=== PATIENT | female | born 1955 | race African-American/Black ===

== ENCOUNTER 2018-06-12 07:17 | Emergency (ER) | payer SELFPAY ==
[2018-06-12] MEDS ORDERED: methylPREDNISolone SOD SUCCI 125 MG/2 ML VIAL IV STA (07:44)
[2018-06-12] MEDS ORDERED: ALBUTEROL NEBULIZED 2.5 MG/3 ML INHALATION STA (07:44)
[2018-06-12] MEDS ORDERED: IPRATROPIUM 0.5 MG/2.5 ML NEBU INHALATION STA (07:44)
--- NOTE | 2018-06-12 08:06 | ED ---
General Adult HPI - General Chief complaint: Shortness of Breath Stated complaint: SOB,cold,COPD Time Seen by Provider: 06/12/18 07:17 Source: patient, RN notes reviewed Mode of arrival: wheelchair Limitations: no limitations - History of Present Illness Initial comments: this is a 63-year-old female presents emergency department with past medical history significant for COPD. Patient states over the last few days she's been having more more difficult to breathing. Patient states she is coughing up some sputum and is yellow in nature. Patient states she's had no fever chills. Patient states a couple weeks ago she was on antibiotics for about a week and steroids. Patient states she has not taken the last week and symptoms seemed to be getting worse. Patient states they did seem to be getting better for a period of time but now the symptoms are back. Patient denies any chest pain or palpitations. Patient denies any abdominal pain patient denies nausea vomiting diarrhea. Patient denies headache patient denies numbness weakness. Patient denies lightheadedness dizziness or near syncopal episode. Patient denies any calf tenderness or leg swelling. - Related Data Home Medications Medication Instructions Recorded Confirmed Losartan/Hydrochlorothiazide 1 tab PO DAILY 06/12/18 06/12/18 [Losartan-Hctz 100-25 mg Tab] Pantoprazole Sodium [Protonix] 40 mg PO DAILY PRN 06/12/18 06/12/18 Verapamil Sr [Isoptin Sr] 240 mg PO DAILY 06/12/18 06/12/18 Previous Rx's Medication Instructions Recorded Azithromycin [Zithromax Tri-Jake] 500 mg PO DAILY #3 tab 06/12/18 predniSONE 40 mg PO DAILY #8 tab 06/12/18 Allergies Allergy/AdvReac Type Severity Reaction Status Date / Time latex Allergy Unknown Verified 06/12/18 09:47 Review of Systems ROS Statement: Those systems with pertinent positive or pertinent negative responses have been documented in the HPI. ROS Other: All systems not noted in ROS Statement are negative. Past Medical History Past Medical History: COPD, Hypertension History of Any Multi-Drug Resistant Organisms: None Reported Past Surgical History: Cholecystectomy, Hernia Repair Additional Past Surgical History / Comment(s): prolapsed bowel surgery Past Psychological History: No Psychological Hx Reported Smoking Status: Former smoker Past Alcohol Use History: None Reported Past Drug Use History: None Reported General Exam - General Exam Comments Initial Comments: GENERAL: Patient is well-developed and well-nourished. Patient is nontoxic and well- hydrated and is in mild distress. ENT: Neck is soft and supple. No significant lymphadenopathy is noted. Oropharynx is clear. Moist mucous membranes. Neck has full range of motion without elicit ing any pain. EYES: The sclera were anicteric and conjunctiva were pink and moist. Extraocular mo vements were intact and pupils were equal round and reactive to light. Eyelids were unremarkable. PULMONARY: Expiratory wheezing CARDIOVASCULAR: There is a regular rate and rhythm without any murmurs gallops or rubs. ABDOMEN: Soft and nontender with normal bowel sounds. No palpable organomegaly was noted. There is no palpable pulsatile mass. SKIN: Skin is clear with no lesions or rashes and otherwise unremarkable. NEUROLOGIC: Patient is alert and oriented x3. Cranial nerves II through XII are grossly intact. Motor and sensory are also intact. Normal speech, volume and content. Symmetrical smile. MUSCULOSKELETAL: Normal extremities with adequate strength and full range of motion. No lower extremity swelling or edema. No calf tenderness. LYMPHATICS: No significant lymphadenopathy is noted PSYCHIATRIC: Normal psychiatric evaluation. Limitations: no limitations Course Vital Signs 06/12/18 06/12/18 06/12/18 07:19 08:12 08:31 Temperature 99.1 F Pulse Rate 84 72 80 Respiratory 22 Rate Blood Pressure 167/108 O2 Sat by Pulse 99 Oximetry Medical Decision Making - Medical Decision Making This is a normal sinus rhythm at 77 bpm KS interval 160 QRS is 70 QT interval 42 QTC is 454. Patient's EKG shows no ST segment elevation or depression or T wave abnormalities are noted. Chest x-ray shows no acute abnormality. Patient received steroids and a breathing treatment emergency department I went back in and reevaluated the patient she had no wheezing at this time and did feel considerably better. Her patient received Rocephin emergency department I will go home on Zithromax and steroids. - Lab Data Result diagrams: 06/12/18 08:08 06/12/18 08:08 Lab Results 06/12/18 06/12/18 06/12/18 Range/Units 08:08 08:08 08:08 WBC 10.0 (3.8-10.6) k/uL RBC 4.69 (3.80-5.40) m/uL Hgb 14.2 (11.4-16.0) gm/dL Hct 42.1 (34.0-46.0) % MCV 89.8 (80.0-100.0) fL MCH 30.4 (25.0-35.0) pg MCHC 33.8 (31.0-37.0) g/dL RDW 13.0 (11.5-15.5) % Plt Count 254 (150-450) k/uL Neutrophils % 67 % Lymphocytes % 23 % Monocytes % 4 % Eosinophils % 2 % Basophils % 1 % Neutrophils # 6.7 (1.3-7.7) k/uL Lymphocytes # 2.3 (1.0-4.8) k/uL Monocytes # 0.4 (0-1.0) k/uL Eosinophils # 0.2 (0-0.7) k/uL Basophils # 0.1 (0-0.2) k/uL PT 9.7 (9.0-12.0) sec INR 0.9 (<1.2) APTT 22.0 (22.0-30.0) sec D-Dimer 0.47 (<0.60) mg/L FEU Sodium 142 (137-145) mmol/L Potassium 3.8 (3.5-5.1) mmol/L Chloride 103 (98-107) mmol/L Carbon Dioxide 32 H (22-30) mmol/L Anion Gap 7 mmol/L BUN 25 H (7-17) mg/dL Creatinine 1.07 H (0.52-1.04) mg/dL Est GFR (CKD-EPI)AfAm 65 (>60 ml/min/1.73 sqM) Est GFR (CKD-EPI)NonAf 57 (>60 ml/min/1.73 sqM) Glucose 98 (74-99) mg/dL Calcium 10.1 (8.4-10.2) mg/dL Magnesium 1.6 (1.6-2.3) mg/dL Total Bilirubin 0.4 (0.2-1.3) mg/dL AST 25 (14-36) U/L ALT 32 (9-52) U/L Alkaline Phosphatase 87 (38-126) U/L Troponin I (0.000-0.034) ng/mL NT-Pro-B Natriuret Pep pg/mL Total Protein 7.1 (6.3-8.2) g/dL Albumin 4.2 (3.5-5.0) g/dL 06/12/18 06/12/18 Range/Units 08:08 08:08 WBC (3.8-10.6) k/uL RBC (3.80-5.40) m/uL Hgb (11.4-16.0) gm/dL Hct (34.0-46.0) % MCV (80.0-100.0) fL MCH (25.0-35.0) pg MCHC (31.0-37.0) g/dL RDW (11.5-15.5) % Plt Count (150-450) k/uL Neutrophils % % Lymphocytes % % Monocytes % % Eosinophils % % Basophils % % Neutrophils # (1.3-7.7) k/uL Lymphocytes # (1.0-4.8) k/uL Monocytes # (0-1.0) k/uL Eosinophils # (0-0.7) k/uL Basophils # (0-0.2) k/uL PT (9.0-12.0) sec INR (<1.2) APTT (22.0-30.0) sec D-Dimer (<0.60) mg/L FEU Sodium (137-145) mmol/L Potassium (3.5-5.1) mmol/L Chloride (98-107) mmol/L Carbon Dioxide (22-30) mmol/L Anion Gap mmol/L BUN (7-17) mg/dL Creatinine (0.52-1.04) mg/dL Est GFR (CKD-EPI)AfAm (>60 ml/min/1.73 sqM) Est GFR (CKD-EPI)NonAf (>60 ml/min/1.73 sqM) Glucose (74-99) mg/dL Calcium (8.4-10.2) mg/dL Magnesium (1.6-2.3) mg/dL Total Bilirubin (0.2-1.3) mg/dL AST (14-36) U/L ALT (9-52) U/L Alkaline Phosphatase (38-126) U/L Troponin I <0.012 (0.000-0.034) ng/mL NT-Pro-B Natriuret Pep 70 pg/mL Total Protein (6.3-8.2) g/dL Albumin (3.5-5.0) g/dL Disposition Clinical Impression: Bronchitis, acute Disposition: HOME SELF-CARE Instructions (If sedation given, give patient instructions): Acute Bronchitis (ED), Bronchospasm (ED) Prescriptions: predniSONE 40 mg PO DAILY #8 tab Azithromycin [Zithromax Tri-Jake] 500 mg PO DAILY #3 tab Is patient prescribed a controlled substance at d/c from ED?: No Referrals: Olinda Olsen MD [Primary Care Provider] - 1-2 days
[2018-06-12 08:32] LABS: Basophils # (A) 0.1 k/uL (0-0.2); Basophils % (A) 1 %; Eosinophils # (A) 0.2 k/uL (0-0.7); Eosinophils % (A) 2 %; HCT 42.1 % (34.0-46.0); HGB 14.2 gm/dL (11.4-16.0); Lymphocytes # (A) 2.3 k/uL (1.0-4.8); Lymphocytes % (A) 23 %; MCH 30.4 pg (25.0-35.0); MCHC 33.8 g/dL (31.0-37.0); MCV 89.8 fL (80.0-100.0); Mean Platelet Volume 7.2; Monocytes # (A) 0.4 k/uL (0-1.0); Monocytes % (A) 4 %; Neutrophils # (A) 6.7 k/uL (1.3-7.7); Neutrophils % (A) 67 %; Platelet Count 254 k/uL (150-450); RBC 4.69 m/uL (3.80-5.40)
--- NOTE | 2018-06-12 08:43 | XR ---
EXAMINATION TYPE: XR chest 2V DATE OF EXAM: 06/12/2018 COMPARISON: NONE HISTORY: Difficulty breathing TECHNIQUE: Frontal and lateral views of the chest are obtained. FINDINGS: There is no focal air space opacity, pleural effusion, or pneumothorax seen. Mild flatteni ng of the diaphragms on the lateral view suggests underlying COPD. The cardiac silhouette size is upp er limits of normal. The osseous structures are intact. IMPRESSION: No acute cardiopulmonary process. Mild flattening of the diaphragms on lateral view may relate to underlying COPD. Correlation with pulmonary function tests could be performed.
[2018-06-12 08:45] LABS: Albumin 4.2 g/dL (3.5-5.0); Calcium 10.1 mg/dL (8.4-10.2); Magnesium 1.6 mg/dL (1.6-2.3); Potassium 3.8 mmol/L (3.5-5.1); Total Bilirubin 0.4 mg/dL (0.2-1.3); Total Protein 7.1 g/dL (6.3-8.2)
[2018-06-12 08:49] LABS: D-Dimer 0.47 mg/L FEU (<0.60); INR 0.9 (<1.2); Prothrombin Time 9.7 sec (9.0-12.0)
[2018-06-12] MEDS ORDERED: cefTRIAXone IN SWFI 1,000 MG/10 ML SYRINGE IVP STA (09:52)
[2018-06-12 11:09] VITALS: BP 126/77; PULSE 84; RESP 17; TEMP 98.7
== END 2018-06-12 11:11 | disposition home or self-care (01) ==
LOC: EC 07:17
DX: J20.9 Acute bronchitis, unspecified (principal); I10 Essential (primary) hypertension; Z87.891 Personal history of nicotine dependence; Z90.49 Acquired absence of other specified parts of digestive tract; Z98.890 Other specified postprocedural states; Z79.899 Other long term (current) drug therapy; Z91.040 Latex allergy status
CPT/HCPCS: 36415; 94640; 93005; 85379; 83880; 80053; 83735; 84484; 85025; 85610; 85730; 87040; 71046; 99285; 96374; 96375; J2930; J0696

== ENCOUNTER 2018-09-05 20:28 | Emergency (ER) | payer MEDICAID ==
[2018-09-05 20:43] VITALS: RESP 18; TEMP 98.7
--- NOTE | 2018-09-05 21:11 | ED ---
General Adult HPI - General Chief complaint: Syncope Stated complaint: Syncope Time Seen by Provider: 09/05/18 20:35 Source: patient, EMS Mode of arrival: EMS - History of Present Illness Initial comments: Dictation was produced using [employer] dictation software. please excuse any grammatical, word or spelling errors. Chief Complaint: 63-year-old female with past medical history of COPD and hypertension presents with syncopal episode. History of Present Illness: 63-year-old female brought to the emergency department for syncopal episode. Patient has past medical history of COPD and hypertension. [place] She states it was really hot outside. Patient began feeling lightheaded and told her family member did take her to equal in station. She got to the police station when she had a witnessed syncopal event. Patient states she fell and hit her head. Patient denies any history of syncope. Denies any palpitations prior to the episode. No history of CHF. Patient next remembers waking up on the ground. Patient otherwise has no complete at this time. The ROS documented in this emergency department record has been reviewed and confirmed by me. Those systems with pertinent positive or negative responses have been documented in the HPI. All other systems are other negative and/or noncontributory. PHYSICAL EXAM: General Impression: Alert and oriented x3, not in acute distress HEENT: Small hematoma over the vertex of the head, extra-ocular movements intact, pupils equal and reactive to light bilaterally, mucous membranes moist. Cardiovascular: Heart regular rate and rhythm, S1&S2 audible, no murmurs, rubs or gallops Chest: Lungs clear to auscultation bilaterally, no rhonchi, no wheeze, no rales Abdomen: Bowel sounds present, abdomen soft, non-tender, non-distended, no organomegaly Musculoskeletal: Pulses present and equal in all extremities, no peripheral edema Motor: no focal deficits noted Neurological: CN II-XII grossly intact, no focal motor or sensory deficits noted Skin: Intact with no visualized rashes Psych: Normal affect and mood ED course: 63-year-old female presents after syncopal event. She fell and hit her head. Denies any symptoms of headache or neck pain at this time. On arrival are within acceptable limits. EKGs benign. Indications were reviewed. Patient is unremarkable male. Laboratory evaluation obtained. CBC unremarkable. Coag panel unremarkable. Potassium level is 2.8. No Acidosis. Slight elevation of renal markers. Rest of metabolic panel is unremarkable. EKG is benign. Patient given IV potassium and by mouth potassium. Patient dictation reviewed she is told to hold her blood pressure medications given that her hypokalemia is likely secondary to potassium wasting. She does have good follow-up with her primary care physician. Patient given potassium supplementation to take her the course of the next 3 days. Episode of syncope is likely secondary to vasovagal syncope versus dehydration. Patient was also given intravenous fluids. Patient monitored with no significant findings on the quality assurance monitor body. Very low suspicion of arrhythmia this time. Patient amenable for discharge she is agreeable and understands return precautions. EKG interpretation: Ventricular rate 64, normal sinus rhythm,. Interval 186, QS 86, QTC 425. No KS prolongation, no QTC prolongation, no ST or T-wave changes noted. . Overall, this EKG is unremarkable - Related Data Home Medications Medication Instructions Recorded Confirmed Losartan/Hydrochlorothiazide 1 tab PO DAILY 06/12/18 09/05/18 [Losartan-Hctz 100-25 mg Tab] Verapamil Sr [Isoptin Sr] 240 mg PO DAILY 06/12/18 09/05/18 Montelukast [Singulair] 10 mg PO DAILY 09/05/18 09/05/18 Previous Rx's Medication Instructions Recorded Potassium Chloride [K-Tab ER] 20 meq PO BID #6 tablet.er 09/05/18 Allergies Allergy/AdvReac Type Severity Reaction Status Date / Time latex Allergy Unknown Verified 09/05/18 21:42 Review of Systems ROS Statement: Those systems with pertinent positive or pertinent negative responses have been documented in the HPI. ROS Other: All systems not noted in ROS Statement are negative. Past Medical History Past Medical History: COPD, Hypertension History of Any Multi-Drug Resistant Organisms: None Reported Past Surgical History: Cholecystectomy, Hernia Repair Additional Past Surgical History / Comment(s): prolapsed bowel surgery Past Psychological History: No Psychological Hx Reported Smoking Status: Light tobacco smoker Past Alcohol Use History: None Reported Past Drug Use History: None Reported Course Vital Signs 09/05/18 20:33 Temperature 98.7 F Pulse Rate 70 Respiratory 18 Rate Blood Pressure 113/72 O2 Sat by Pulse 97 Oximetry Medical Decision Making - Lab Data Result diagrams: 09/05/18 21:17 09/05/18 21:17 Lab Results 09/05/18 09/05/18 09/05/18 Range/Units 21:16 21:17 21:17 WBC 9.6 (3.8-10.6) k/uL RBC 4.50 (3.80-5.40) m/uL Hgb 13.3 (11.4-16.0) gm/dL Hct 40.4 (34.0-46.0) % MCV 89.9 (80.0-100.0) fL MCH 29.7 (25.0-35.0) pg MCHC 33.0 (31.0-37.0) g/dL RDW 13.3 (11.5-15.5) % Plt Count 259 (150-450) k/uL Neutrophils % 58 % Lymphocytes % 33 % Monocytes % 4 % Eosinophils % 2 % Basophils % 0 % Neutrophils # 5.6 (1.3-7.7) k/uL Lymphocytes # 3.2 (1.0-4.8) k/uL Monocytes # 0.4 (0-1.0) k/uL Eosinophils # 0.2 (0-0.7) k/uL Basophils # 0.0 (0-0.2) k/uL PT (9.0-12.0) sec INR (<1.2) Sodium 143 (137-145) mmol/L Potassium 2.8 L (3.5-5.1) mmol/L Chloride 108 H (98-107) mmol/L Carbon Dioxide 25 (22-30) mmol/L Anion Gap 10 mmol/L BUN 26 H (7-17) mg/dL Creatinine 1.54 H (0.52-1.04) mg/dL Est GFR (CKD-EPI)AfAm 42 (>60 ml/min/1.73 sqM) Est GFR (CKD-EPI)NonAf 36 (>60 ml/min/1.73 sqM) Glucose 114 H (74-99) mg/dL POC Glucose (mg/dL) 113 H (75-99) mg/dL POC Glu Lighting Adviser ID Luiz Saenz Calcium 9.5 (8.4-10.2) mg/dL Magnesium 1.9 (1.6-2.3) mg/dL 09/05/18 Range/Units 21:17 WBC (3.8-10.6) k/uL RBC (3.80-5.40) m/uL Hgb (11.4-16.0) gm/dL Hct (34.0-46.0) % MCV (80.0-100.0) fL MCH (25.0-35.0) pg MCHC (31.0-37.0) g/dL RDW (11.5-15.5) % Plt Count (150-450) k/uL Neutrophils % % Lymphocytes % % Monocytes % % Eosinophils % % Basophils % % Neutrophils # (1.3-7.7) k/uL Lymphocytes # (1.0-4.8) k/uL Monocytes # (0-1.0) k/uL Eosinophils # (0-0.7) k/uL Basophils # (0-0.2) k/uL PT 10.7 (9.0-12.0) sec INR 1.0 (<1.2) Sodium (137-145) mmol/L Potassium (3.5-5.1) mmol/L Chloride (98-107) mmol/L Carbon Dioxide (22-30) mmol/L Anion Gap mmol/L BUN (7-17) mg/dL Creatinine (0.52-1.04) mg/dL Est GFR (CKD-EPI)AfAm (>60 ml/min/1.73 sqM) Est GFR (CKD-EPI)NonAf (>60 ml/min/1.73 sqM) Glucose (74-99) mg/dL POC Glucose (mg/dL) (75-99) mg/dL POC Glu Lighting Adviser ID Calcium (8.4-10.2) mg/dL Magnesium (1.6-2.3) mg/dL Disposition Clinical Impression: Vasovagal syncope Disposition: HOME SELF-CARE Condition: Good Instructions (If sedation given, give patient instructions): Syncope (DC), Hypokalemia (ED) Prescriptions: Potassium Chloride [K-Tab ER] 20 meq PO BID #6 tablet.er Is patient prescribed a controlled substance at d/c from ED?: No Referrals: Olinda Olsen MD [Primary Care Provider] - 1-2 days Time of Disposition: 22:20
[2018-09-05 21:23] LABS: Glucose,Whole Blood 113 mg/dL (75-99)
[2018-09-05 21:27] LABS: Basophils % (A) 0 %; Eosinophils # (A) 0.2 k/uL (0-0.7); Eosinophils % (A) 2 %; HCT 40.4 % (34.0-46.0); HGB 13.3 gm/dL (11.4-16.0); Lymphocytes # (A) 3.2 k/uL (1.0-4.8); Lymphocytes % (A) 33 %; MCH 29.7 pg (25.0-35.0); MCV 89.9 fL (80.0-100.0); Mean Platelet Volume 6.7; Monocytes # (A) 0.4 k/uL (0-1.0); Monocytes % (A) 4 %; Neutrophils # (A) 5.6 k/uL (1.3-7.7); Neutrophils % (A) 58 %; Platelet Count 259 k/uL (150-450); RDW 13.3 % (11.5-15.5); WBC 9.6 k/uL (3.8-10.6)
[2018-09-05 21:32] LABS: Prothrombin Time 10.7 sec (9.0-12.0)
--- NOTE | 2018-09-05 21:36 | CT ---
EXAMINATION TYPE: CT brain nikita torres con DATE OF EXAM: 09/05/2018 COMPARISON: CT brain 05/06/2017 HISTORY: syncopal episode Headache. Neck pain. CT DLP: 1274.5 mGycm Automated exposure control for dose reduction was used. TECHNIQUE: CT scan of the head and cervical spine are performed without contrast. FINDINGS: Ventricles and sulci appear normal. There is no mass effect nor midline shift. There is n o sign of intracranial hemorrhage. The calvarium appears intact. There is some straightening of the cervical spine. There is degenerative disc space narrowing at C5-6 with moderate spur formation of the endplates. There is hypertrophic facet arthropathy in the mid ce rvical spine. Skull base is intact. There is no evidence of a fracture. IMPRESSION: Negative CT scan of the brain. No change. Spondylotic changes in the lower cervical spine. No fracture.
--- NOTE | 2018-09-05 21:38 | XR ---
EXAMINATION TYPE: XR chest 1V portable DATE OF EXAM: 09/05/2018 COMPARISON: 06/12/2018 HISTORY: Syncope TECHNIQUE: Single frontal view of the chest is obtained. FINDINGS: Heart and mediastinum are normal. Lungs are clear. Diaphragm is normal. Bony thorax appear s normal. IMPRESSION: Normal chest. No change.
[2018-09-05 21:45] LABS: Calcium 9.5 mg/dL (8.4-10.2); Magnesium 1.9 mg/dL (1.6-2.3); Potassium 2.8 mmol/L (3.5-5.1)
[2018-09-05] MEDS ORDERED: POTASSIUM CHLORIDE ER 20 MEQ TAB.ER PO STA (22:06)
[2018-09-05] MEDS ORDERED: POTASSIUM CHLORIDE 20 MEQ in WATER FOR INJECTION 1 100ML.BAG IVPB ONE (22:30)
[2018-09-06 04:29] VITALS: BP 122/69; PULSE 69
== END 2018-09-06 01:00 | disposition home or self-care (01) ==
LOC: EC 20:28
DX: R55 Syncope and collapse (principal); J44.9 Chronic obstructive pulmonary disease, unspecified; I10 Essential (primary) hypertension; F17.200 Nicotine dependence, unspecified, uncomplicated; Z79.899 Other long term (current) drug therapy; Z91.040 Latex allergy status
CPT/HCPCS: 36415; 93005; 80048; 83735; 85025; 85610; 71045; 72125; 70450; 99285; 96365; 96366; J3480